=== PATIENT | female | born 1930 | race Caucasian/White ===

== ENCOUNTER 2017-05-20 09:29 | Emergency (ER) | payer MEDICARE ==
[~2017-05-20] VITALS: Ht 162.6 cm; Wt 68.0 kg
[~2017-05-20 09:29] MED LIST: RANI150 PO; ULTR50TA PO; htn; thyroid
[2017-05-20 09:30] VITALS: BP 155/114; PULSE 111; RESP 24; TEMP 97.7; O2SAT 100
--- NOTE | 2017-05-20 10:17 | PD ---
HPI Chief Complaint: Cardiac Complaint Time Seen by Provider: 10:17 Travel History International Travel<30 days: No Contact w/Intl Traveler<30days: No Traveled to known affect area: No History of Present Illness HPI 86-year-old female came to the emergency room with history of palpitations. Patient says 2 days ago she went to see her new doctor who after doing an EKG was concerned the way her heart beats were. She wanted her to be seen by [facility] operator and was trying to make a referral. Patient says then she has been feeling this pounding sensation in her chest. There is no chest pain or dizziness or syncopal episode. Patient has not heard back from cardiology office up until today and finally decided to come to the emergency room because she couldn't take it anymore. She is here with her friend. Patient has history of hypothyroidism and takes Synthroid. PFS Past Medical History Narrative Medical List of her past medical, surgical, social and family history is reviewed from the nursing note. High Cholesterol: Yes COPD: Yes Hypertension: Yes Respiratory: Yes Thyroid Disease: Yes Influenza Vaccination: Yes Past Surgical History Appendectomy: Yes Hysterectomy: Yes Tonsillectomy: Yes Social History Alcohol Use: No Tobacco Use: No Substance Use: No Allergies-Medications (Allergen,Severity, Reaction): Coded Allergies: egg (Unverified Allergy, Severe, 05/20/17) Sulfa (Sulfonamide Antibiotics) (Unverified Allergy, Unknown, 05/20/17) Comments List of allergies reviewed from the nursing note. Reported Meds & Prescriptions Reported Meds & Active Scripts Active Methimazole 5 Mg Tab 5 Mg PO TID Reported Losartan (Losartan Potassium) 25 Mg Tab 25 Mg PO DAILY Levothyroxine (Levothyroxine Sodium) 88 Mcg Tab 88 Mcg PO DAILY Omeprazole 40 Mg Cap 40 Mg DAILY Flovent Hfa 12 GM Inh (Fluticasone Propionate) 110 Mcg/Act Inh 2 Puff INH BID Prednisone 5 Mg Tab 5 Mg PO DAILY Ativan (Lorazepam) 0.5 Mg Tab 0.5 Mg PO HS PRN Trazodone (Trazodone HCl) 50 Mg Tab 50-100 Mg PO HS PRN Narrative Medication List of her home medications reviewed from the nursing note. Review of Systems Except as stated in HPI: all other systems reviewed are Neg Cardiovascular: Positive: Palpitations Physical Exam Narrative GENERAL: Awake, alert, anxious, elderly SKIN: Focused skin assessment warm/dry. HEAD: Atraumatic. Normocephalic. EYES: Pupils equal and round. No scleral icterus. No injection or drainage. ENT: No nasal bleeding or discharge. Mucous membranes pink and moist. NECK: Trachea midline. No JVD. CARDIOVASCULAR: Irregular rhythm. No murmur appreciated. RESPIRATORY: No accessory muscle use. Clear to auscultation. Breath sounds equal bilaterally. GASTROINTESTINAL: Abdomen soft, non-tender, nondistended. Hepatic and splenic margins not palpable. MUSCULOSKELETAL: No obvious deformities. No clubbing. No cyanosis. No edema. NEUROLOGICAL: Awake and alert. No obvious cranial nerve deficits. Motor grossly within normal limits. Normal speech. PSYCHIATRIC: Appropriate mood and affect; insight and judgment normal. Data Data Last Documented VS Vital Signs Date Time Temp Pulse Resp B/P (MAP) Pulse Ox O2 Delivery O2 Flow Rate FiO2 05/20/17 10:40 97 Room Air 05/20/17 09:42 78 05/20/17 09:30 97.7 24 155/114 (128) Orders Orders Basic Metabolic Panel (Bmp) (05/20/17 10:35) Complete Blood Count With Diff (05/20/17 10:35) Magnesium (Mg) (05/20/17 10:35) Prothrombin Time / Inr (Pt) (05/20/17 10:35) Troponin I (05/20/17 10:35) Ecg Monitoring (05/20/17 10:35) Bilateral Bp Monitoring (05/20/17 10:35) Iv Access Insert/Monitor (05/20/17 10:35) Oximetry (05/20/17 10:35) Oxygen Administration (05/20/17 10:35) Sodium Chloride 0.9% Flush (Ns Flush) (05/20/17 10:45) Electrocardiogram (05/20/17 09:43) Chest, Single Ap (05/20/17 ) Thyroid Stimulating Hormone (05/20/17 10:36) Urinalysis - C+S If Indicated (05/20/17 10:37) Methimazole (Tapazole) (05/20/17 13:15) Sodium Chlorid 0.9% 500 Ml Inj (Ns 500 M (05/20/17 14:00) Ed Discharge Order (05/20/17 13:52) Labs Laboratory Tests Test 05/20/17 10:30 05/20/17 10:45 White Blood Count 12.9 TH/MM3 Red Blood Count 4.37 MIL/MM3 Hemoglobin 13.8 GM/DL Hematocrit 42.1 % Mean Corpuscular Volume 96.5 FL Mean Corpuscular Hemoglobin 31.6 PG Mean Corpuscular Hemoglobin Concent 32.8 % Red Cell Distribution Width 15.3 % Platelet Count 256 TH/MM3 Mean Platelet Volume 8.1 FL Neutrophils (%) (Auto) 84.8 % Lymphocytes (%) (Auto) 6.6 % Monocytes (%) (Auto) 7.6 % Eosinophils (%) (Auto) 0.6 % Basophils (%) (Auto) 0.4 % Neutrophils # (Auto) 10.9 TH/MM3 Lymphocytes # (Auto) 0.9 TH/MM3 Monocytes # (Auto) 1.0 TH/MM3 Eosinophils # (Auto) 0.1 TH/MM3 Basophils # (Auto) 0.1 TH/MM3 CBC Comment DIFF FINAL Differential Comment Prothrombin Time 10.4 SEC Prothromb Time International Ratio 1.0 RATIO Blood Urea Nitrogen 31 MG/DL Creatinine 1.65 MG/DL Random Glucose 72 MG/DL Calcium Level 8.9 MG/DL Magnesium Level 2.3 MG/DL Sodium Level 142 MEQ/L Potassium Level 4.1 MEQ/L Chloride Level 107 MEQ/L Carbon Dioxide Level 23.8 MEQ/L Anion Gap 11 MEQ/L Estimat Glomerular Filtration Rate 29 ML/MIN Troponin I LESS THAN 0.02 NG/ML Thyroid Stimulating Hormone 3rd Gen 0.223 uIU/ML Urine Color YELLOW Urine Turbidity CLEAR Urine pH 7.0 Urine Specific [place] 1.014 Urine Protein NEG mg/dL Urine Glucose (UA) NEG mg/dL Urine Ketones NEG mg/dL Urine Occult Blood NEG Urine Nitrite NEG Urine Bilirubin NEG Urine Urobilinogen LESS THAN 2.0 MG/DL Urine Leukocyte Esterase SMALL Urine RBC LESS THAN 1 /hpf Urine WBC 1 /hpf Urine Squamous Epithelial Cells 1 /hpf Urine Transitional Epithelial Cells <1 /hpf Urine Mucus FEW /lpf Microscopic Urinalysis Comment CULT NOT INDICATED MDM Medical Decision Making Medical Screen Exam Complete: Yes Emergency Medical Condition: Yes Medical Record Reviewed: Yes Interpretation(s) Twelve-lead EKG was reviewed by me. Normal sinus rhythm, multiple PACs, normal axis, nonspecific ST-T wave changes. Heart rate of 75 bpm. Differential Diagnosis Left right abnormality, thyroid hormone imbalance, PACs Narrative Course 1:13 PM blood test results of back and TSH is significantly low. In my opinion patient symptoms have developed probably from the hyperthyroidism. Patient obviously has to stop taking her Synthroid. I've given her dose of methimazole here and a prescription to go home with. She needs to follow up with her primary care to get a repeat TSH level done within a week. 1:53 PM blood test results of back and BUN/creatinine is elevated. I've ordered 500 cc of IV fluid bolus. After that patient will be discharged home. Procedures EKG Prior to Arrival: No Diagnosis Primary Impression: Palpitations Additional Impressions: PAC (premature atrial contraction) Dehydration Hyperthyroidism Referrals: Primary Care Physician 3 days Additional Instructions: Return to the ER if the condition worsens or any other new concerns. Otherwise take the medication as per the prescription direction. Follow-up with your primary care and get a repeat thyroid blood test levels done within 1 week. He should not take his Synthroid in the interim till the repeat blood test is done. Med/Other Pt SpecificInfo: Prescription(s) given Scripts Methimazole (Methimazole) 5 Mg Tab 5 MG PO TID for Thyroid, #15 TAB 0 Refills Prov: Estelle Rice MD 05/20/17 Disposition: 01 DISCHARGE HOME Condition: Stable Estelle Rice MD May 20, 2017 10:17
[2017-05-20] MEDS ORDERED: FLUTI110I INH (10:28)
[2017-05-20] MEDS ORDERED: LORA-392 PO (10:28)
[2017-05-20] MEDS ORDERED: TRAZ50TA12 PO (10:28)
[2017-05-20] MEDS ORDERED: PRED5TAB PO (10:28)
[2017-05-20] MEDS ORDERED: LEVO88TA2 PO (10:28)
[2017-05-20] MEDS ORDERED: OMEP40CA2 (10:28)
[2017-05-20] MEDS ORDERED: LOSA25TA PO (10:28)
[2017-05-20 10:40] VITALS: O2SAT 97
[2017-05-20] MEDS ORDERED: SODIUM CHLORIDE 0.9% FLUSH 10 ML FLUSH IVF PRN (10:45)
[2017-05-20 11:22] LABS: AUTOMATED NEUTROPHIL # 10.9 TH/MM3 (1.8-7.7); BASOPHIL # 0.1 TH/MM3 (0-0.2); BASOPHIL % 0.4 % (0.0-2.0); EOSINOPHIL # 0.1 TH/MM3 (0-0.4); EOSINOPHIL % 0.6 % (0.0-4.0); HEMATOCRIT 42.1 % (35.0-46.0); HEMOGLOBIN 13.8 GM/DL (11.6-15.3); LYMPH % 6.6 % (9.0-44.0); LYMPHOCYTE # 0.9 TH/MM3 (1.0-4.8); MEAN CELL VOLUME 96.5 FL (80.0-100.0); MEAN CORPUSCULAR HEMOGLOBIN 31.6 PG (27.0-34.0); MEAN CORPUSCULAR HGB CONC 32.8 % (32.0-36.0); MEAN PLATELET VOLUME 8.1 FL (7.0-11.0); MONO % 7.6 % (0.0-8.0); NEUT % 84.8 % (16.0-70.0); PLATELET COUNT 256 TH/MM3 (150-450); RED BLOOD COUNT 4.37 MIL/MM3 (4.00-5.30); RED CELL DISTRIBUTION WIDTH 15.3 % (11.6-17.2); WHITE BLOOD COUNT 12.9 TH/MM3 (4.0-11.0)
--- NOTE | 2017-05-20 11:29 | RADRPT ---
EXAM DATE/TIME: 05/20/2017 10:48 [facility] COMPARISON: No previous studies available for comparison. INDICATIONS : Heart palpitations. MEDICAL HISTORY : Hypertension. Chronic obstructive pulmonary disease. SURGICAL HISTORY : Hysterectomy. Appendectomy. ENCOUNTER: Initial ACUITY: 1 day PAIN SCORE: 0/10 LOCATION: Bilateral chest FINDINGS: Cardiomegaly. Clear lungs. Aortic calcification. Osseous structures are intact. CONCLUSION: No acute disease. Jorge Love MD on May 20, 2017 at 11:27 Board Certified Radiologist. This report was verified electronically.
[2017-05-20 11:31] LABS: PROTHROMBIN TIME - PATIENT 10.4 SEC (9.8-11.6)
[2017-05-20 11:33] LABS: BILIRUBIN, URINE NEG (NEG); BLOOD, URINE NEG (NEG); GLUCOSE,URINE NEG (NEG); KETONE, URINE NEG (NEG); MUCUS URINE FEW /lpf (OCC); NITRITE,URINE NEG (NEG); SQUAMOUS EPITHELIAL CELL URINE 1 /hpf (0-5); TRANSITIONAL EPI CELLS, URINE <1 /hpf; URINE COLOR YELLOW (YELLW/STRAW); URINE LEUKOCYTE ESTERASE SMALL (NEG)
[2017-05-20] MEDS ORDERED: METHIMAZOLE 10 MG TAB PO ONE (13:15)
[2017-05-20 13:46] LABS: TROPONIN I LESS THAN 0.02 NG/ML (0.02-0.05)
[2017-05-20 13:47] LABS: BICARBONATE 23.8 MEQ/L (21.0-32.0); BLOOD UREA NITROGEN 31 MG/DL (7-18); CALCIUM 8.9 MG/DL (8.5-10.1); CHLORIDE 107 MEQ/L (98-107); CREATININE 1.65 MG/DL (0.50-1.00); GLOMERULAR FILTRATION RATE 29 ML/MIN (>89); GLUCOSE,RANDOM 72 MG/DL (74-106); MAGNESIUM 2.3 MG/DL (1.5-2.5); SODIUM (NA) 142 MEQ/L (136-145)
[2017-05-20] MEDS ORDERED: METH5TAB4 PO (13:56)
[2017-05-20] MEDS ORDERED: SODIUM CHLORID 0.9% 500 ML INJ 500 ML IV ONE (14:00)
--- NOTE | 2017-05-20 17:54 | EKG ---
Date Performed: 05/20/2017 Time Performed: 09:43:50 PTAGE: 86 years EKG: Sinus rhythm WITH FREQUENT SUPRAVENTRICULAR PREMATURE COMPLEXES ABNORMAL RHYTHM ECG Compared to PREVIOUS TRACING , the patient is now having frequent PACs. PREVIOUS TRACIN12/25/2014 11.35.16 DOCTOR: Ashia Romero Interpretating Date/Time 05/20/2017 17:53:43
== END 2017-05-20 15:12 | disposition home or self-care (01) ==
LOC: NEPC 09:29
DX: R00.2 Palpitations (principal); I49.1 Atrial premature depolarization; E86.0 Dehydration; E05.90 Thyrotoxicosis, unspecified without thyrotoxic crisis or storm; E78.00 Pure hypercholesterolemia, unspecified; I10 Essential (primary) hypertension; J44.9 Chronic obstructive pulmonary disease, unspecified
CPT/HCPCS: 71045; 80048; 81001; 83735; 84443; 84484; 85025; 85610; 93005; 96360; 99285; J7040

== ENCOUNTER 2017-06-27 14:16 | Emergency (ER) | payer MEDICARE ==
[~2017-06-27] VITALS: Ht 162.6 cm; Wt 69.1 kg
[~2017-06-27 14:16] MED LIST changes: +FLUTI110I INH; +LEVO88TA2 PO; +LORA-392 PO; +LOSA25TA PO; +METH5TAB4 PO; +OMEP40CA2; +PRED5TAB PO; -RANI150 PO; +TRAZ50TA12 PO; -ULTR50TA PO; -htn; -thyroid
[2017-06-27 14:58] VITALS: BP 158/79; PULSE 88; RESP 18; TEMP 98.3; O2SAT 95
[2017-06-27 18:27] LABS: AUTOMATED NEUTROPHIL # 9.4 TH/MM3 (1.8-7.7); BASOPHIL # 0.1 TH/MM3 (0-0.2); BASOPHIL % 0.6 % (0.0-2.0); EOSINOPHIL # 0.1 TH/MM3 (0-0.4); EOSINOPHIL % 0.5 % (0.0-4.0); HEMATOCRIT 47.1 % (35.0-46.0); HEMOGLOBIN 15.6 GM/DL (11.6-15.3); LYMPH % 11.5 % (9.0-44.0); LYMPHOCYTE # 1.4 TH/MM3 (1.0-4.8); MEAN CELL VOLUME 96.3 FL (80.0-100.0); MEAN CORPUSCULAR HGB CONC 33.2 % (32.0-36.0); MEAN PLATELET VOLUME 7.9 FL (7.0-11.0); MONO % 7.9 % (0.0-8.0); MONOCYTE # 0.9 TH/MM3 (0-0.9); NEUT % 79.5 % (16.0-70.0); PLATELET COUNT 311 TH/MM3 (150-450); RED BLOOD COUNT 4.89 MIL/MM3 (4.00-5.30); WHITE BLOOD COUNT 11.8 TH/MM3 (4.0-11.0)
[2017-06-27] MEDS ORDERED: VITA2000 PO (18:33)
[2017-06-27 18:35] VITALS: BP 122/61; PULSE 102; RESP 17; TEMP 97.8; O2SAT 96; O2SAT 98
[2017-06-27 18:38] LABS: PROTHROMBIN TIME - PATIENT 10.3 SEC (9.8-11.6)
[2017-06-27] MEDS ORDERED: ONDANSETRON HCL 4 MG/2 ML VIAL IVP ONE (18:45)
[2017-06-27] MEDS ORDERED: SODIUM CHLORID 0.9% 500 ML INJ 500 ML IV ONE ×2 (18:45→20:45)
[2017-06-27 19:07] LABS: ALBUMIN 3.7 GM/DL (3.4-5.0); AST (GOT) 35 U/L (15-37); BICARBONATE 25.9 MEQ/L (21.0-32.0); BLOOD UREA NITROGEN 30 MG/DL (7-18); CALCIUM 9.3 MG/DL (8.5-10.1); CHLORIDE 104 MEQ/L (98-107); CREATININE 1.87 MG/DL (0.50-1.00); GLOMERULAR FILTRATION RATE 26 ML/MIN (>89); GLUCOSE,RANDOM 125 MG/DL (74-106); SODIUM (NA) 138 MEQ/L (136-145)
[2017-06-27 19:08] LABS: ALT (GPT) 40 U/L (10-53)
[2017-06-27 19:17] LABS: ALKALINE PHOSPHATASE 73 U/L (45-117); FREE T4 1.17 NG/DL (0.76-1.46); TOTAL BILIRUBIN ADULT 0.8 MG/DL (0.2-1.0); TOTAL PROTEIN 7.8 GM/DL (6.4-8.2)
[2017-06-27 19:28] VITALS: BP 112/71; PULSE 88; RESP 18; O2SAT 95
[2017-06-27 19:40] LABS: BANDS 3 % (0-6); LYMPHOCYTES 12 % (9-44); METAMYELOCYTES 1 % (0-1); MONOCYTES 9 % (0-8); NEUTROPHIL # MANUAL DIFF 9.3 TH/MM3 (1.8-7.7); POLYS (SEG NEUTROPHILS) 75 % (16-70)
--- NOTE | 2017-06-27 20:35 | RADRPT ---
EXAM DATE/TIME: 06/27/2017 19:53 [facility] COMPARISON: No previous studies available for comparison. INDICATIONS : Diarrhea for one day nauseated gas pain ORAL CONTRAST: No oral contrast ingested. RADIATION DOSE: 8.47 CTDIvol (mGy) MEDICAL HISTORY : Hypertension. Chronic obstructive pulmonary disease. SURGICAL HISTORY : Appendectomy. Hysterectomy. ENCOUNTER: Initial ACUITY: 1 day PAIN SCALE: 0/10 LOCATION: Abdomen TECHNIQUE: Volumetric scanning of the abdomen and pelvis was performed. Using automated exposure control and ad justment of the mA and/or kV according to patient size, radiation dose was kept as low as reasonably achievable to obtain optimal diagnostic quality images. DICOM format image data is available electro nically for review and comparison. FINDINGS: Lung bases are clear. No acute findings in the liver, spleen, adrenals, kidneys or pancreas. No calci fied gallstones or biliary ductal dilatation. There is no free fluid. No bowel obstruction. no adenopathy. There is colonic diverticulosis the with out diverticulitis. CONCLUSION: 1. No acute findings in abdomen and pelvic CT. Colonic diverticulosis without diverticulitis. Mane Trivedi MD on June 27, 2017 at 20:27 Board Certified Radiologist. This report was verified electronically.
[2017-06-27 20:41] LABS: AMORPHOUS SEDIMENT, URINE RARE; BACTERIA, URINE FEW /hpf; BLOOD, URINE SMALL (NEG); GLUCOSE,URINE NEG (NEG); HYALINE CAST, URINE 13 /lpf (RARE); KETONE, URINE TRACE mg/dL (NEG); MUCUS URINE MANY /lpf (OCC); NITRITE,URINE NEG (NEG); PH, URINE 5.5 (5.0-8.5); SQUAMOUS EPITHELIAL CELL URINE 10 /hpf (0-5); URINE COLOR DARK-YELLOW (YELLW/STRAW); URINE LEUKOCYTE ESTERASE LARGE (NEG)
[2017-06-27 20:43] LABS: BILIRUBIN, URINE NEG (NEG)
[2017-06-27] MEDS ORDERED: CIPR-9 PO (21:14)
[2017-06-27] MEDS ORDERED: LOPE2CAP PO (21:14)
[2017-06-27] MEDS ORDERED: ZOFR4TAB3 SL (21:14)
--- NOTE | 2017-06-27 21:28 | PD ---
HPI Chief Complaint: GI Complaint Time Seen by Provider: 18:27 Travel History International Travel<30 days: No Contact w/Intl Traveler<30days: No Traveled to known affect area: No History of Present Illness HPI 86-year-old female that presents to the ED for evaluation of diarrhea. Per patient she does have diarrhea which is watery since last night. Per patient # 4 days ago she developed diarrhea that improved on its own. Per patient she did not think much of it until he came back last night. Per patient she is been going to the bathroom almost every 30 minutes. Per patient she gets cramping as well as lower abdominal pain. She started to see some blood when she wipes which he attributes to going to the bathroom so often. She denies any blood in the actual stool. Denies any urinary issues. Denies any fevers chills or sweats. Per patient this morning she was a little bit nauseous but did not vomit. She denies any nausea at this time. Per patient took an Imodium that seemed to help the symptoms and now she has not had a bowel movement since 12:00. She denies any abdominal pain. No other medical issues. Allergy to sulfa and egg. PFSH Past Medical History Cardiovascular Problems: Yes High Cholesterol: Yes COPD: Yes Diminished Hearing: No Genitourinary: Yes Hypertension: Yes Respiratory: Yes Thyroid Disease: Yes Tetanus Vaccination: > 5 Years Influenza Vaccination: No Menopausal: Yes : 3 Para: 3 Past Surgical History Appendectomy: Yes Hysterectomy: Yes Tonsillectomy: Yes Social History Alcohol Use: No Tobacco Use: No (quit 2007) Substance Use: No Allergies-Medications (Allergen,Severity, Reaction): Coded Allergies: egg (Verified Allergy, Severe, hives, 06/27/17) Sulfa (Sulfonamide Antibiotics) (Verified Allergy, Unknown, hives, 06/27/17) Reported Meds & Prescriptions Reported Meds & Active Scripts Active Cipro (Ciprofloxacin HCl) 500 Mg Tab 500 Mg PO BID 10 Days Zofran Odt (Ondansetron Odt) 4 Mg Tab 4 Mg SL Q6HR PRN Loperamide (Loperamide HCl) 2 Mg Cap 2 Mg PO DIRECTED PRN One capsule after each loose stool. Not to exceed 8 capsules per day. Methimazole 5 Mg Tab 5 Mg PO TID Reported Vitamin D3 (Cholecalciferol) 2,000 Unit Cap 2,000 Units PO DAILY Losartan (Losartan Potassium) 25 Mg Tab 25 Mg PO DAILY Levothyroxine (Levothyroxine Sodium) 88 Mcg Tab 88 Mcg PO DAILY Omeprazole 40 Mg Cap 40 Mg DAILY Flovent Hfa 12 GM Inh (Fluticasone Propionate) 110 Mcg/Act Inh 2 Puff INH BID Prednisone 5 Mg Tab 5 Mg PO BID Ativan (Lorazepam) 0.5 Mg Tab 0.5 Mg PO HS PRN Trazodone (Trazodone HCl) 50 Mg Tab 50-100 Mg PO HS PRN Review of Systems Except as stated in HPI: all other systems reviewed are Neg Physical Exam Narrative GENERAL: SKIN: Warm and dry. HEAD: Atraumatic. Normocephalic. EYES: Pupils equal and round. No scleral icterus. No injection or drainage. ENT: No nasal bleeding or discharge. Mucous membranes pink and moist. Tongue is midline. No uvula deviation. NECK: Trachea midline. No JVD. CARDIOVASCULAR: Regular rate and rhythm. No murmurs, S3, S4. RESPIRATORY: No accessory muscle use. Clear to auscultation. Breath sounds equal bilaterally. GASTROINTESTINAL: Abdomen soft, non-tender, nondistended. Hepatic and splenic margins not palpable. MUSCULOSKELETAL: Extremities without clubbing, cyanosis, or edema. No obvious deformities. Full range of motion of the upper and lower extremities bilaterally. 2+ pulses bilaterally. NEUROLOGICAL: Awake and alert. No obvious cranial nerve deficits. Motor grossly within normal limits. Five out of 5 muscle strength in the arms and legs. Normal speech. PSYCHIATRIC: Appropriate mood and affect; insight and judgment normal. Data Data Last Documented VS Vital Signs Date Time Temp Pulse Resp B/P (MAP) Pulse Ox O2 Delivery O2 Flow Rate FiO2 06/27/17 19:28 88 18 112/71 (85) 95 Room Air 06/27/17 18:35 97.8 Orders Orders Complete Blood Count With Diff (06/27/17 15:01) Comprehensive Metabolic Panel (06/27/17 15:01) Lipase (06/27/17 15:01) Prothrombin Time / Inr (Pt) (06/27/17 15:01) Act Partial Throm Time (Ptt) (06/27/17 15:01) Urinalysis - C+S If Indicated (06/27/17 15:01) Iv Access Insert/Monitor (06/27/17 18:37) Ondansetron Inj (Zofran Inj) (06/27/17 18:45) Sodium Chlorid 0.9% 500 Ml Inj (Ns 500 M (06/27/17 18:45) Free Thyroxine (T4) (06/27/17 18:07) Thyroid Stimulating Hormone (06/27/17 18:07) Ct Abd/Pel W/O Iv Contrast (06/27/17 ) Urine Culture (06/27/17 20:20) Sodium Chlorid 0.9% 500 Ml Inj (Ns 500 M (06/27/17 20:45) Ed Discharge Order (06/27/17 21:23) Labs Laboratory Tests Test 06/27/17 18:07 06/27/17 20:20 White Blood Count 11.8 TH/MM3 Red Blood Count 4.89 MIL/MM3 Hemoglobin 15.6 GM/DL Hematocrit 47.1 % Mean Corpuscular Volume 96.3 FL Mean Corpuscular Hemoglobin 32.0 PG Mean Corpuscular Hemoglobin Concent 33.2 % Red Cell Distribution Width 15.0 % Platelet Count 311 TH/MM3 Mean Platelet Volume 7.9 FL Neutrophils (%) (Auto) 79.5 % Lymphocytes (%) (Auto) 11.5 % Monocytes (%) (Auto) 7.9 % Eosinophils (%) (Auto) 0.5 % Basophils (%) (Auto) 0.6 % Neutrophils # (Auto) 9.4 TH/MM3 Lymphocytes # (Auto) 1.4 TH/MM3 Monocytes # (Auto) 0.9 TH/MM3 Eosinophils # (Auto) 0.1 TH/MM3 Basophils # (Auto) 0.1 TH/MM3 CBC Comment AUTO DIFF Differential Total Cells Counted 100 Neutrophils % (Manual) 75 % Band Neutrophils % 3 % Lymphocytes % 12 % Monocytes % 9 % Neutrophils # (Manual) 9.3 TH/MM3 Metamyelocytes 1 % Differential Comment FINAL DIFF MANUAL Platelet Estimate NORMAL Platelet Morphology Comment CLUMPED Prothrombin Time 10.3 SEC Prothromb Time International Ratio 1.0 RATIO Activated Partial Thromboplast Time 22.2 SEC Blood Urea Nitrogen 30 MG/DL Creatinine 1.87 MG/DL Random Glucose 125 MG/DL Total Protein 7.8 GM/DL Albumin 3.7 GM/DL Calcium Level 9.3 MG/DL Alkaline Phosphatase 73 U/L Aspartate Amino Transf (AST/SGOT) 35 U/L Alanine Aminotransferase (ALT/SGPT) 40 U/L Total Bilirubin 0.8 MG/DL Sodium Level 138 MEQ/L Potassium Level 4.0 MEQ/L Chloride Level 104 MEQ/L Carbon Dioxide Level 25.9 MEQ/L Anion Gap 8 MEQ/L Estimat Glomerular Filtration Rate 26 ML/MIN Lipase 168 U/L Free Thyroxine 1.17 NG/DL Thyroid Stimulating Hormone 3rd Gen 5.330 uIU/ML Urine Color DARK-YELLOW Urine Turbidity HAZY Urine pH 5.5 Urine Specific [place] 1.026 Urine Protein 30 mg/dL Urine Glucose (UA) NEG mg/dL Urine Ketones TRACE mg/dL Urine Occult Blood SMALL Urine Nitrite NEG Urine Bilirubin NEG Urine Urobilinogen 4.0 MG/DL Urine Leukocyte Esterase LARGE Urine RBC 19 /hpf Urine WBC 158 /hpf Urine Squamous Epithelial Cells 10 /hpf Urine Amorphous Sediment RARE Urine Bacteria FEW /hpf Urine Hyaline Casts 13 /lpf Urine Mucus MANY /lpf Microscopic Urinalysis Comment CULTURE INDICATED MDM Medical Decision Making Medical Screen Exam Complete: Yes Emergency Medical Condition: Yes Medical Record Reviewed: Yes Interpretation(s) CBC & BMP Diagram 06/27/17 18:07 Total Protein 7.8, Albumin 3.7, Calcium Level 9.3, Alkaline Phosphatase 73, Aspartate Amino Transf (AST/SGOT) 35, Alanine Aminotransferase (ALT/SGPT) 40, Total Bilirubin 0.8 UA shows UTI TSH slightly elevated Last Impressions Abdomen/Pelvis CT 06/27/17 0000 Signed Impressions: Service Date/Time: Tuesday, June 27, 2017 19:53 - CONCLUSION: 1. No acute findings in abdomen and pelvic CT. Colonic diverticulosis without diverticulitis. Mane Trivedi MD Differential Diagnosis Acute abdomen versus abdominal pain versus gastroenteritis versus diarrhea Narrative Course 86-year-old female that presents to the ED for evaluation of diarrhea. Patient was properly examined and was found to have signs and symptoms consistent appears to be diarrhea. Labs and imaging ordered. Labs and imaging essentially unremarkable. No sign of diverticulitis or any acute disease alert and UTI. She will be treated for this with Cipro. Given immodium prescription and Zofran. Follow-up with PCP. SeeED if worsening symptoms. Diagnosis Primary Impression: Diarrhea Qualified Codes: R19.7 - Diarrhea, unspecified Additional Impression: UTI (urinary tract infection) Qualified Codes: N30.00 - Acute cystitis without hematuria Patient Instructions: General Instructions Additional Instructions: Take medications as prescribed. Follow-up with PCP. See ED worsening symptoms. Med/Other Pt SpecificInfo: Prescription(s) given Scripts Ciprofloxacin (Cipro) 500 Mg Tab 500 MG PO BID for Infection for 10 Days, #20 TAB 0 Refills Prov: Taran Lowery MD 06/27/17 Ondansetron Odt (Zofran Odt) 4 Mg Tab 4 MG SL Q6HR Y for Nausea/Vomiting, #30 TAB 0 Refills Prov: Taran Lowery MD 06/27/17 Loperamide (Loperamide) 2 Mg Cap 2 MG PO DIRECTED Y for DIARRHEA, #20 CAP 0 Refills One capsule after each loose stool. Not to exceed 8 capsules per day. Prov: Taran Lowery MD 06/27/17 Disposition: 01 DISCHARGE HOME Condition: Stable Khadar Phan Jun 27, 2017 21:27
== END 2017-06-27 21:49 | disposition home or self-care (01) ==
LOC: NEPE 14:16
DX: R19.7 Diarrhea, unspecified (principal); N30.00 Acute cystitis without hematuria; E07.9 Disorder of thyroid, unspecified; I10 Essential (primary) hypertension; Z79.899 Other long term (current) drug therapy; Z87.891 Personal history of nicotine dependence
CPT/HCPCS: 74176; 80053; 81001; 83690; 84439; 84443; 85007; 85027; 85610; 85730; 87086; 96361; 96374; 99284; J2405; J7040